=== PATIENT | male | born 1970 | race Caucasian/White ===

== ENCOUNTER → 2021-06-20 14:12 | Outpatient (BNVA) | payer OTHER, SELFPAY | PROVIDERS: PCP Internal Medicine; Visit Provider Nurse Practitioner Family | DX: M79.18 Myalgia, other site (principal); M47.22 Other spondylosis with radiculopathy, cervical region; M54.2 Cervicalgia; G89.28 Other chronic postprocedural pain; Z98.890 Other specified postprocedural states | CPT/HCPCS: 99202 ==

== ENCOUNTER → 2021-07-25 12:30 | Outpatient (BNVA) | payer OTHER, SELFPAY | PROVIDERS: PCP Internal Medicine; Visit Provider Nurse Practitioner Family | DX: M79.18 Myalgia, other site (principal); M47.22 Other spondylosis with radiculopathy, cervical region; M54.2 Cervicalgia; G89.28 Other chronic postprocedural pain; Z98.890 Other specified postprocedural states | CPT/HCPCS: 99212 ==

== ENCOUNTER 2021-07-31 17:21 | Outpatient (REF) | payer OTHER, SELFPAY ==
--- NOTE | ~2021-07-31 | MR_ITS ---
MR CERVICAL SPINE WITHOUT CONTRAST CLINICAL INFORMATION: Cervicalgia. COMPARISON: None available. TECHNIQUE: MRI of the cervical spine was obtained using routine sequences without contrast. FINDINGS: Postoperative changes following ACDF at the C5-C7 levels. Surgical hardware is not diagnostically assessed on MRI. There is no bone marrow edema. There are no acute fractures. The cervical arterial flow voids are maintained. There are no cord signal changes. No significant soft tissue findings. Partially imaged intracranial compartment is unremarkable. C2-C3: Disc contour is normal. No central canal stenosis and no foraminal stenosis. C3-C4: Small annular disc bulge. Uncovertebral joint spurring and facet arthropathy result in mild left-sided foraminal encroachment. C4-C5: Disc osteophyte mildly narrows the central canal. Uncovertebral joint hypertrophy and hypertrophic facet arthropathy result in moderate bilateral foraminal stenosis. C5-C6: ACDF changes. Advanced uncovertebral joint hypertrophy and hypertrophic facet arthropathy result in severe bilateral foraminal stenosis. Central canal not well assessed secondary to artifact from the surgical hardware. C6-C7: ACDF changes. Uncovertebral joint hypertrophy and hypertrophic facet arthropathy result in moderate to severe left-sided foraminal stenosis. Central canal not well assessed secondary to artifact from the surgical hardware. C7-T1: Disc contour is normal. No central canal stenosis and no foraminal stenosis. MR/MR cervical spine wo con IMPRESSION: - Postoperative changes following ACDF at the C5-C7 levels. - Spondylitic changes result in moderate bilateral C4-C5, severe bilateral C5-C6, and moderate to severe left C6-C7 foraminal stenosis. No severe central canal stenosis within the cervical spine.
== END 2021-07-31 17:22 | disposition home or self-care (01) ==
LOC: HO.MRI 17:21
PROVIDERS: PCP Internal Medicine; Visit Provider Nurse Practitioner Family
DX: M54.2 Cervicalgia (principal); G89.28 Other chronic postprocedural pain; M47.22 Other spondylosis with radiculopathy, cervical region; Z98.890 Other specified postprocedural states
CPT/HCPCS: 72141

== ENCOUNTER 2021-08-02 11:07 | Outpatient (REF) | payer OTHER, SELFPAY ==
[2021-08-02 14:22] LABS: Alanine Aminotransferase 33 U/L (0-40); Albumin Level 4.8 g/dL (3.5-5.0); Alkaline Phosphatase 62 U/L (39-117); Anion Gap 14 (12-20); Aspartate Amino Transferase 27 U/L (5-37); Bilirubin Total 0.5 mg/dL (0.0-1.0); Blood Urea Nitrogen 9 mg/dL (9-16); Calcium 9.6 mg/dL (8.4-10.2); Carbon Dioxide 24 mmol/L (22-29); Chloride 103 mmol/L (96-108); Estimated Glomerular Filt Rate > 60; Glucose Random 93 mg/dL (60-115); Potassium 4.1 mmol/L (3.3-5.1); Sodium 137 mmol/L (135-145); Total Protein 7.5 g/dL (6.5-8.0)
== END 2021-08-02 11:08 | disposition home or self-care (01) ==
LOC: HO.HMGCLDS 11:07
PROVIDERS: PCP Internal Medicine; Visit Provider Nurse Practitioner Family
DX: Z01.812 Encounter for preprocedural laboratory examination (principal)
CPT/HCPCS: 36415; 80053

== ENCOUNTER → 2021-08-22 12:28 | Outpatient (BNVA) | payer OTHER, SELFPAY | PROVIDERS: PCP Internal Medicine; Visit Provider Nurse Practitioner Family ==

== ENCOUNTER 2022-01-04 15:03 | Emergency (ER) | payer OTHER, SELFPAY ==
--- NOTE | ~2022-01-04 | CT_ITS ---
EXAMINATION: CT ABDOMEN AND PELVIS WITHOUT CONTRAST CLINICAL INFORMATION: Hematuria COMPARISON: None TECHNIQUE: Multidetector volumetric imaging was performed from the superior aspect of the liver through the pubic symphysis. Sagittal and coronal reformatted images were obtained on the technologist's workstation. This CT examination was performed using dose optimization techniques as appropriate, variously including the following: *Automated exposure control *Adjustment of mA and/or kV according to patient size (this includes techniques or standardized protocols for targeted exams where dose is matched to indication/reason for exam; i.e. extremities or head) *Use of iterative reconstruction technique DLP: 792 mGy-cm FINDINGS: LUNG BASES: There is bibasilar atelectasis/scarring. Heart size is normal. LIVER, GALLBLADDER, AND BILIARY TREE: The liver is normal in size, shape, and attenuation. No focal hepatic lesion or biliary ductal dilatation is present. The gallbladder is unremarkable with no evidence of radiopaque gallstones, gallbladder wall thickening, or obvious pericholecystic inflammatory changes. PANCREAS: Unremarkable. SPLEEN: Unremarkable. ADRENAL GLANDS: Unremarkable. KIDNEYS AND URETERS: The kidneys are normal in size, shape, and attenuation. No hydronephrosis, hydroureter, or calculi seen. No perinephric stranding. BLADDER: There is mild bladder wall thickening. GASTROINTESTINAL TRACT: There is scattered stool and gas seen throughout the colon without any significant distention. The appendix is normal caliber. The small bowel loops are normal caliber. The stomach is nondistended ABDOMINAL WALL: A small lacunar hernia containing intraperitoneal fat is noted. LYMPH NODES: Normal. VASCULAR: Unremarkable. PELVIC VISCERA: The prostate gland is mildly enlarged with central gland calcification. The periprostatic fat planes are preserved. No abnormal pelvic or inguinal lymph nodes seen. Prominent bilateral inguinal canal containing fat is noted. OSSEOUS STRUCTURES: Unremarkable. CT/CT abdomen pelvis wo con IMPRESSION: Mild distended bladder with bladder wall thickening but no radiopaque bilateral renal calculi seen. There is no adenopathy or hydronephrosis. Mild prostate enlargement. The base of the bladder wall is thickened as well. Consider urology consult. Prominent bilateral inguinal canal containing fat. Fleischner guidelines were followed.
[2022-01-04 16:08] VITALS: BP 151/86; PULSE 87; RESP 18; TEMP 36.7; O2SAT 98; BMI 32.7
[2022-01-04 16:30] LABS: MANUAL DIFF FLAG NO
[2022-01-04 16:33] LABS: Appearance Urine HAZY; Basophils Absolute Auto 0.1 X10*3/uL (0.0-0.2); Basophils Percent Auto 0.6 % (0-2); Color Urine YELLOW; Eosinophils Absolute Auto 0.2 X10*3/uL (0.0-0.4); Eosinophils Percent Auto 2.2 % (0-4); Glucose Urine UA NEG (NEG); Hematocrit 42.4 % (42.0-52.0); Hemoglobin 14.3 g/dl (14.0-18.0); Imm Gran Abs Auto 0.02 X10*3/uL (0.00-0.03); Imm Gran Pct Auto 0.2 % (0.0-0.4); Leukocyte Esterase Urine 2+ (NEG); Lymphocytes Absolute Auto 2.3 X10*3/uL (1.2-4.9); Lymphocytes Percent Auto 25.5 % (20-40); Mean Corpuscular HGB Conc 33.7 g/dl (31.0-36.0); Mean Corpuscular Hemoglobin 30.1 pg (27.0-33.0); Mean Corpuscular Volume 89.3 fL (80.0-98.0); Mean Platelet Volume 9.1 fL (9.4-12.4); Monocytes Absolute Auto 0.9 X10*3/uL (0.1-1.2); Monocytes Percent Auto 9.4 % (2-11); Neutrophils Absolute Auto 5.6 x10*3/uL (2.0-8.3); Neutrophils Percent Auto 62.1 % (45-73); Nitrite Urine NEG (NEG); PH 7.5 (5.0-8.0); Platelet Count 258 X10*3/uL (160-400); Red Blood Count 4.75 X10*6/uL (4.60-5.80); Red Cell Distribution Width 12.4 % (11.0-16.0); Specific Gravity - Urine <= 1.005 (1.005-1.025); UACC Culture Trigger YES; Urine Blood 3+ (NEG); Urine Ketones NEG (NEG); Urine Protein 1+ MG/DL (NEG-TRACE)
[2022-01-04 16:51] LABS: Bacteria Urine 2+ /LPF; RBC Urine 30-49 /HPF (0)
[2022-01-04 16:58] LABS: Alanine Aminotransferase 26 U/L (0-40); Albumin Level 4.6 g/dL (3.5-5.0); Alkaline Phosphatase 72 U/L (39-117); Anion Gap 14 (12-20); Aspartate Amino Transferase 21 U/L (5-37); Bilirubin Total 0.5 mg/dL (0.0-1.0); Blood Urea Nitrogen 10 mg/dL (9-16); Calcium 9.9 mg/dL (8.4-10.2); Carbon Dioxide 26 mmol/L (22-29); Chloride 102 mmol/L (96-108); Creatinine Clr Calc Pharmacy 151.6; Estimated Glomerular Filt Rate > 60; Glucose Random 73 mg/dL (60-115); Sodium 138 mmol/L (135-145); Total Protein 7.4 g/dL (6.5-8.0)
== END 2022-01-04 22:21 | disposition left against medical advice (07) ==
PROVIDERS: Emergency Provider Emergency Medicine; PCP Internal Medicine
DX: R31.9 Hematuria, unspecified (principal)
CPT/HCPCS: 36415; 74176; 80053; 81001; 85025; 87086; 87088; 87186; 99284

== ENCOUNTER 2022-01-30 06:28 | Outpatient (REF) | payer OTHER, SELFPAY | END 2022-01-30 06:29 | disposition home or self-care (01) | LOC: HO.RADIR 06:28 | PROVIDERS: Visit Provider Anesthesiology | DX: Z13.89 Encounter for screening for other disorder (principal) | CPT/HCPCS: J3300 ==

== ENCOUNTER 2022-02-02 13:19 | Day surgery (SDC) | payer OTHER, SELFPAY ==
--- NOTE | 2022-02-01 10:43 | HO.ANESPROP2 ---
Documented by User: Jane David NP 02/01/22 10:46 [facility] Active Problems Active Problems: All Active Problems (Updated 11/08/21 @ 12:48 by Mady Blum NP) Multiple drug allergies (Acute) Cervical spinal stenosis (Acute) Pre-procedural laboratory examination (Acute) Chronic neck pain with history of cervical spinal surgery (Acute) Spondylosis of cervical spine with radiculopathy (Acute) Cervicalgia (Acute) Myofascial pain (Acute) Past Medical History Medical History (Updated 02/01/22 @ 10:45 by Jane David NP) Central apnea Diabetes DVT (deep venous thrombosis) Fatty liver HLD (hyperlipidemia) HTN (hypertension) PHILIP (obstructive sleep apnea) Pulmonary emboli Social History Social History Patient Tobacco Use Status: Current everyday Tobacco user Tobacco use type: Cigarette Cigarettes Per Day: 5 Use of substances other than those prescribed or required for medical reasons: No Are you DNR?: No Advance Directives: No Advance Directives Information Provided: Yes Advance Directives on File: No Meds Allergies Allergy/AdvReac Type Severity Reaction Status Date / Time enoxaparin [From Lovenox] Allergy Severe hives Verified 01/30/22 10:12 gabapentin Allergy Severe body Verified 01/30/22 10:12 swelling Iodinated Contrast Media Allergy Severe hives Verified 01/30/22 10:12 morphine Allergy Severe severe Verified 01/30/22 10:12 dyspnea codeine Allergy Unknown CHEST PAIN Verified 01/30/22 10:12 adhesive AdvReac Severe rash Verified 01/30/22 10:12 oxycodone [Percocet] AdvReac Severe inflames Verified 01/30/22 10:12 prostate Home Medications Medication Instructions Recorded Confirmed Last Taken Type atorvastatin 80 mg tablet 80 mg PO DAILY 06/20/21 07/25/21 Unknown History dulaglutide 1.5 mg/0.5 mL 1.5 mg subcut QWEEK 06/20/21 07/25/21 Unknown History subcutaneous pen injector (Trulicity) loratadine 10 mg tablet 10 mg PO DAILY 06/20/21 07/25/21 02/02/22 History metformin 500 mg tablet,extended 500 mg PO TID 06/20/21 07/25/21 02/02/22 History release 24 hr olmesartan 20 mg tablet 10 mg PO DAILY 1107/25/21 02/02/22 History warfarin 5 mg tablet 10 mg PO DAILY 06/20/21 07/25/21 01/25/22 History varenicline 1 mg tablet 1 tab PO BID 02/02/22 02/02/22 02/02/22 History Exam Exam Date and Time: February 01, 2022 1043 Pertinent Lab Results Pertinent Lab Results: Laboratory Tests 01/04/22 01/04/22 16:21 16:21 WBC 9.0 Hgb 14.3 Hct 42.4 Plt Count 258 Sodium 138 Potassium 4.0 Chloride 102 Carbon Dioxide 26 BUN 10 Creatinine 0.77 Assessment and Plan Assessment Anesthesia Assessment: Chart Reviewed Documented by User: Tereso Ayon MD 02/02/22 14:00 [facility] Past Medical History Medical History (Updated 02/01/22 @ 10:45 by Jane David NP) Central apnea Diabetes DVT (deep venous thrombosis) Fatty liver HLD (hyperlipidemia) HTN (hypertension) PHILIP (obstructive sleep apnea) Pulmonary emboli Family History Family history of problems with anesthesia: No Surgical History History of Problems with Anesthesia: No Social History Social History Patient Tobacco Use Status: Current everyday Tobacco user Tobacco use type: Cigarette Cigarettes Per Day: 5 Use of substances other than those prescribed or required for medical reasons: No Are you DNR?: No Advance Directives: No Advance Directives Information Provided: Yes Advance Directives on File: No Meds Allergies Allergy/AdvReac Type Severity Reaction Status Date / Time enoxaparin [From Lovenox] Allergy Severe hives Verified 01/30/22 10:12 gabapentin Allergy Severe body Verified 01/30/22 10:12 swelling Iodinated Contrast Media Allergy Severe hives Verified 01/30/22 10:12 morphine Allergy Severe severe Verified 01/30/22 10:12 dyspnea codeine Allergy Unknown CHEST PAIN Verified 01/30/22 10:12 adhesive AdvReac Severe rash Verified 01/30/22 10:12 oxycodone [Percocet] AdvReac Severe inflames Verified 01/30/22 10:12 prostate Home Medications Medication Instructions Recorded Confirmed Last Taken Type atorvastatin 80 mg tablet 80 mg PO DAILY 06/20/21 07/25/21 Unknown History dulaglutide 1.5 mg/0.5 mL 1.5 mg subcut QWEEK 06/20/21 07/25/21 Unknown History subcutaneous pen injector (Trulicity) loratadine 10 mg tablet 10 mg PO DAILY 06/20/21 07/25/21 02/02/22 History metformin 500 mg tablet,extended 500 mg PO TID 06/20/21 07/25/21 02/02/22 History release 24 hr olmesartan 20 mg tablet 10 mg PO DAILY 06/20/21 07/25/21 02/02/22 History warfarin 5 mg tablet 10 mg PO DAILY 06/20/21 07/25/21 01/25/22 History varenicline 1 mg tablet 1 tab PO BID 02/02/22 02/02/22 02/02/22 History Exam Airway Mallampati Class: III TM Dist: >3cm Neck ROM: Full Assessment and Plan Assessment Anesthesia Assessment: Anesthesia Plan Discussed and Smoking Cess. Discussed Final Anesthetic Review Family History of Problems with Anesthesia: No History of Problems with Anesthesia: No NPO: Yes ASA Class: III Final Preanesthetic Review: No Changes in Pt Med Stat, Meds/Allgs Chart Reviewed, Consent Obtained/Reviewed and Anes Risks/Benef Reviewed Patient Risk: Intermediate Procedure Risk: Low Anesthetic Plan Anesthetic Plan: MAC: Disposition: Standard PACU
[2022-02-02] VITALS (8 sets, daily range): BP systolic 98–145; BP diastolic 51–93; PULSE 69–82; RESP 16; TEMP 36.1–36.7; O2SAT 93–98; BMI 32.2
--- NOTE | ~2022-02-02 | FL_ITS ---
EXAMINATION: XR FLUOROSCOPY WITH IMAGES CLINICAL INFORMATION: Interlaminar epidural COMPARISON: MR cervical spine 07/31/2021 TECHNIQUE: Fluoroscopy performed by Dr. Crescencio Navarrete. Fluoroscopy time: 0.2 minutes DAP: 0.615 mGycm2 Images: 1 FINDINGS: There are postsurgical changes with hardware at C5-C6 and C6-C7. A spinal needle is present with tip at interlaminar level C6-C7. FL/FL guidance in OR IMPRESSION: Fluoroscopy for pain management procedure.
[2022-02-02 13:56] LABS: Glucose, Whole Blood 89 mg/dL (60-115)
[2022-02-02] MEDS: Lactated Ringers 1,000 ML 100 ML IVCONT (13:58)
[2022-02-02 14:07] LABS: Prothrombin Time 11.3 SEC (9.9-13.0)
[2022-02-02] MEDS: Hydrocortisone Sod Succ/PF 100 MG VIAL 200 MG IVPUSH (14:10)
[2022-02-02] MEDS: diphenhydrAMINE HCL 50 MG/ML VIAL IVPUSH (14:49)
--- NOTE | 2022-02-02 14:56 | MHC.SHP ---
Pre-Procedural Eval Section A Date of Service: 02/02/22 The patient is an INPATIENT: No Changes since office visit: Yes Patient answered all questions The History & Physical has been completed within 30 days and I have reviewed it.: No Section B Chief Complaint: spondylosis with radiculopathy, cervical region Details of Present Illness: as above Relevant Family History (Specify if Yes): No Relevant Social History: None Present Medications: see Short Stay Collaborative assessment Medical History: No relevant PMH History of Previous Operations: No relevant previous surgery Allergies: Allergies Allergy/AdvReac Type Severity Reaction Status Date / Time enoxaparin [From Lovenox] Allergy Severe hives Verified 01/30/22 10:12 gabapentin Allergy Severe body Verified 01/30/22 10:12 swelling Iodinated Contrast Media Allergy Severe hives Verified 01/30/22 10:12 morphine Allergy Severe severe Verified 01/30/22 10:12 dyspnea codeine Allergy Unknown CHEST PAIN Verified 01/30/22 10:12 adhesive AdvReac Severe rash Verified 01/30/22 10:12 oxycodone [Percocet] AdvReac Severe inflames Verified 01/30/22 10:12 prostate Review of Systems Sugical H&P ROS: Negative: Constitution, Cardiovascular, Respiratory, Neurological, Psychiatric, Hem-Onc, Allergic/Immunologic, Gastrointestinal, Genitourinary, Musculoskeletal, Integumentary, Endocrine and Eyes/Ears/Nose/Throat Exam Surgical H&P Exam: Normal: HEENT, Normal: Heart, Normal: Lungs, Normal: Extremities, Normal: Abdomen, Normal: Skin and Normal: Neurological Plan Diagnosis/Plan: Unchanged I have reviewed the history and physical and performed a pertinent physical examination on my patient. No changes have occurred unless specified.
--- NOTE | 2022-02-02 15:39 | P.BOP_ITS ---
Brief Operative Note Date of Service: 02/02/22 Pre-op diagnosis: spondylosis cervical spine, postlaminectomy syndrome cervical spine Post-op diagnosis: same Procedure: C6-C7 interlaminar cervical epidural steroid injection Surgeon: Crescencio Navarrete MD Anesthesia: MAC Was an Patent Leather Sorter used for this Procedure?: No Estimated blood loss (mL): 0 Pathology: none sent Condition: stable Disposition: PACU
--- NOTE | 2022-02-02 15:40 | P.OP_ITS ---
Operative Note Operative Note Date of Service: 02/02/22 Narrative: Martin is very pleasant 51 years old male? who came today into the operating room for interlaminar C6-C7 epidural steroid injection. Patient is allergic to IV contrast he received Benadryl 50 mg before the procedure. Anesthesiologist was on standby with diluted epinephrine. After obtaining informed consent the patient was brought to the operating room, He was positioned prone on operating table, [employer] monitors were applied and patient was minimally sedated.? ?Time-out was performed delineating correct site, side, the nature of the procedure, patient's allergy, preoperative antibiotic if needed.? All operating room staff was participating in OR time-out procedure. Patient's neck and upper back was prepped with ChloraPrep draped with sterile utility towels.full body fenestrated drape.? C-arm was brought over operating field and square picture C6-C7 and T1 vertebra is were demonstrated on the screen. Inter spacers between cervical vertebral bodies of C5-C6 and C6-C7 were noted. Right lamina of C7 vertebra on the right very close to the spinous process of C7 projection to the skin was chosen to the start of the injection. After recent skin wheal with lidocaine 1% 22 gauge Touhy needle was inserted through the skin wheal and advanced to were the upper margin of the C7 lamina on intermittent anterior posterior and contralateral oblique views. Loss of resis tance to saline technique was used to locate the epidural space. When loss of resistant is felt very small amount of the contrast less than 0.5 cc was injected into the needle considering patient's allergy to IV contrast. Epidural spread of the contrast was demonstrated on the screen. Contralateral oblique image was saved. After that treatment solution of normal saline mixed with 6 mg of Decadron and very small amount of lidocaine 1% approximately 16 drops was administered into the epidural space. The patient tolerated procedure well. He was taking outside of the operating room to PACU where he recovered uneventfully. He went home without immediate complications.
--- NOTE | 2022-02-02 17:40 | PC.NURSE ---
patient ambulated to bathroom steady gait. no nausea. voidedx1
== END 2022-02-02 17:41 | disposition home or self-care (01) ==
PROVIDERS: Nurse Practitioner; PCP Internal Medicine; Visit Provider Anesthesiology
PROC: 3E0R33Z Introduction of Anti-inflammatory into Spinal Canal, Percutaneous Approach (ICD-10-PCS; CPT 62321; principal; 2022-02-02 14:30)
DX: M48.02 Spinal stenosis, cervical region (principal); M54.2 Cervicalgia; G89.29 Other chronic pain; M47.22 Other spondylosis with radiculopathy, cervical region; Z98.890 Other specified postprocedural states; Z86.718 Personal history of other venous thrombosis and embolism; I10 Essential (primary) hypertension; E11.9 Type 2 diabetes mellitus without complications; J30.9 Allergic rhinitis, unspecified; E78.5 Hyperlipidemia, unspecified; Z79.01 Long term (current) use of anticoagulants; Z79.84 Long term (current) use of oral hypoglycemic drugs; Z79.899 Other long term (current) drug therapy; Z88.8 Allergy status to other drugs, medicaments and biological substances; F17.210 Nicotine dependence, cigarettes, uncomplicated
CPT/HCPCS: 62321; 36415; 82947; 85610; J0171; J1100; J1200; J2250; J2795; J3010; Q9966

== ENCOUNTER → 2022-03-06 09:46 | Outpatient (BNVA) | payer OTHER, SELFPAY | PROVIDERS: PCP Internal Medicine; Visit Provider Nurse Practitioner Family | DX: M48.02 Spinal stenosis, cervical region (principal); G89.28 Other chronic postprocedural pain; M54.2 Cervicalgia; M47.22 Other spondylosis with radiculopathy, cervical region; M62.838 Other muscle spasm; M53.3 Sacrococcygeal disorders, not elsewhere classified | CPT/HCPCS: 99212 ==

== ENCOUNTER 2022-05-01 05:59 | Outpatient (REF) | payer OTHER, SELFPAY ==
--- NOTE | ~2022-05-01 | FL_ITS ---
EXAMINATION: XR FLUOROSCOPY WITH IMAGES CLINICAL INFORMATION: M53.3 - Sacrococcygeal disorders, not elsewhere classified COMPARISON: AP pelvis 01/04/2022 TECHNIQUE: Fluoroscopy performed by Dr. Crescencio Navarrete. Fluoroscopy time: under 1 minute. Cumulative Dose: 3.96 mGy. DAP: 1.08 Gy-cm2. Images: 1. FINDINGS: Spinal needle overlies mid to lower right SI joint. There is trace contrast in the periarticular soft tissues with probable early intra-articular contrast. No vasculature communication appreciated. FL/FL guidance in treatment room IMPRESSION: Fluoroscopy for pain management procedure.
== END 2022-05-01 06:00 | disposition home or self-care (01) ==
LOC: HO.RADIR 05:59
PROVIDERS: Visit Provider Anesthesiology
DX: M53.3 Sacrococcygeal disorders, not elsewhere classified (principal); M48.02 Spinal stenosis, cervical region; M54.2 Cervicalgia; G89.28 Other chronic postprocedural pain; M47.22 Other spondylosis with radiculopathy, cervical region; M62.838 Other muscle spasm; Z98.890 Other specified postprocedural states
CPT/HCPCS: 27096; A9585; J2795; J3300; J3301

== ENCOUNTER 2022-06-01 12:48 | Day surgery (SDC) | payer OTHER, SELFPAY ==
--- NOTE | ~2022-06-01 | FL_ITS ---
EXAMINATION: XR FLUOROSCOPY WITH IMAGES CLINICAL INFORMATION: M48.02 - Spinal stenosis, cervical region COMPARISON: MR cervical spine 07/31/2021, fluoroscopic spot view 02/02/2022. TECHNIQUE: Fluoroscopy performed by Dr. Crescencio Navarrete. Fluoroscopy time: 0.4 minutes. Cumulative Dose: 5.81 mGy. DAP: 0.983 Gy-cm2. Images: 2. FINDINGS: There are postsurgical changes again seen lower cervical spine consistent with ACDF C5-C6 and C6-C7. Disc space hardware is intact. There is a spinal needle at posterior interlaminal lower cervical spine just right at approximately C6-C7. FL/FL guidance in treatment room IMPRESSION: Fluoroscopy for pain management procedure.
[2022-06-01 13:26] VITALS: BMI 32.2
[2022-06-01] MEDS: Lactated Ringers 1,000 ML 100 ML IVCONT (13:39)
[2022-06-01 13:40] VITALS: BP 143/87; PULSE 76; RESP 16; TEMP 36.4; O2SAT 97
[2022-06-01 13:54] LABS: INTERNATIONAL NORM RATIO 0.9 (0.9-1.1); Prothrombin Time 10.7 SEC (10.0-13.1)
--- NOTE | 2022-06-01 13:57 | P.OP_ITS ---
Operative Note Operative Note Date of Service: 02/02/22 Narrative: Martin is very pleasant 51 years old male? who came today into the operating room for interlaminar C6-C7 epidural steroid injection. Patient is allergic to IV contrast he received Benadryl 50 mg before the procedure. Anesthesiologist was on standby with diluted epinephrine. After obtaining informed consent the patient was brought to the operating room, He was positioned prone on operating table, [place] [employer] monitors were applied and patient was minimally sedated.? ?Time-out was performed delineating correct site, side, the nature of the procedure, patient's allergy, preoperative antibiotic if needed.? All operating room staff was participating in OR time-out procedure. Patient's neck and upper back was prepped with ChloraPrep draped with sterile utility towels.full body fenestrated drape.? C-arm was brought over operating field and square picture C6-C7 and T1 vertebra is were demonstrated on the screen. It required to tilt C-arm 15 gegree cephalad to obtain a proper view of the interlaminal opening and avoid anterior spine hardware imaging. Inter spacers between cervical vertebral bodies of C5-C6 and C6-C7 were noted. Right lamina of C7 vertebra on the right very close to the spinous process of C7 projection to the skin was chosen to the start of the injection. After rising skin wheal with lidocaine 1% 22 gauge Touhy needle was inserted through the skin wheal and advanced to the upper margin of the C7 lamina on intermittent anterior posterior and contralateral oblique views. Loss of resistance to saline technique was used to locate the epidural space. Contralateral oblique view at 50 degrees of the tilt to the left was used to demonstrate the advancement of the needle toward the interlaminar line. When loss of resistant is felt very small amount of the contrast less than 0.5 cc was injected into the needle considering patient's allergy to IV contrast. Epidural spread of the contrast was demonstrated on the screen. Contralateral oblique image was saved. After that treatment solution of normal saline mixed with 12 mg of Decadron and very small (trace ) amount of lidocaine 2% approximately 26 drops was administered into the epidural space. The patient tolerated procedure well. He was taken outside of the operating room to PACU where he recovered uneventfully. He went home without immediate complications.
--- NOTE | 2022-06-01 13:59 | HO.ANESPROP2 ---
REPLACED BY [facility] Active Problems Active Problems: All Active Problems (Updated 03/07/22 @ 17:43 by Mady Blum NP) Sacroiliac joint pain (Acute) Muscle spasms of neck (Acute) Multiple drug allergies (Acute) Cervical spinal stenosis (Acute) Pre-procedural laboratory examination (Acute) Chronic neck pain with history of cervical spinal surgery (Acute) Spondylosis of cervical spine with radiculopathy (Acute) Cervicalgia (Acute) Myofascial pain (Acute) Past Medical History Medical History (Updated 03/07/22 @ 17:43 by Mady Blum NP) Central apnea Diabetes DVT (deep venous thrombosis) Fatty liver HLD (hyperlipidemia) HTN (hypertension) PHILIP (obstructive sleep apnea) Pulmonary emboli Family History Family history of problems with anesthesia: No Surgical History History of Problems with Anesthesia: No Social History Social History Patient Tobacco Use Status: Current everyday Tobacco user Tobacco use type: Cigarette Cigarettes Per Day: 5 Use of substances other than those prescribed or required for medical reasons: No Are you DNR?: No Advance Directives: No Advance Directives Information Provided: Yes Meds Allergies Allergy/AdvReac Type Severity Reaction Status Date / Time enoxaparin [From Lovenox] Allergy Severe hives Verified 05/01/22 12:56 gabapentin Allergy Severe body Verified 05/01/22 12:56 swelling Iodinated Contrast Media Allergy Severe hives Verified 05/01/22 12:56 morphine Allergy Severe severe Verified 05/01/22 12:56 dyspnea codeine Allergy Unknown CHEST PAIN Verified 05/01/22 12:56 oxycodone [Percocet] AdvReac Severe inflames Verified 05/01/22 12:56 prostate Active Medications: Current Medications Albuterol Sulfate (Albuterol Sulfate (0.083%) 2.5 Mg/3 Ml Vial.Neb) 2.5 mg INHALE ONCE PRN PRN Reason: Shortness of Breath/Wheezing Lactated Ringer's (Lr) 1,000 mls @ 100 mls/hr IVCONT .Q10H ANIBAL Last Admin: 06/01/22 13:39 Dose: 100 mls/hr Home Medications Medication Instructions Recorded Confirmed Last Taken Type atorvastatin 80 mg tablet 80 mg PO BEDTIME 06/20/21 06/01/22 Unknown History loratadine 10 mg tablet 10 mg PO DAILY 06/20/21 06/01/2222 History metformin 500 mg tablet,extended 500 mg PO TID 06/20/21 06/01/22 06/01/22 History release 24 hr olmesartan 20 mg tablet 10 mg PO DAILY 06/20/21 06/01/22 02/02/22 History warfarin 5 mg tablet 10 mg PO DAILY 06/20/21 06/01/22 01/25/22 History varenicline 1 mg tablet 1 tab PO BID 02/02/22 06/01/22 02/02/22 History ergocalciferol (vitamin D2) 1,250 1 cap PO QWEEK 06/01/22 06/01/22 Unknown History mcg (50,000 unit) capsule sertraline 100 mg tablet 2 tab PO DAILY 06/01/22 06/01/22 Unknown History triamcinolone acetonide 55 mcg 1 spray intranasal DAILY 06/01/22 06/01/22 Unknown History nasal spray aerosol Exam Exam Date and Time: June 01, 2022 1359 Height,Weight and Vital Signs: Height 6 ft 2 in Weight 113.852 kg Last Vital Signs Temp 97.5 F 06/01/22 13:40 Pulse 76 06/01/22 13:40 Resp 16 06/01/22 13:40 BP 143/87 H 06/01/22 13:40 Pulse Ox 97 06/01/22 13:40 O2 Del Method 06/01/22 13:40 Pertinent Lab Results Pertinent Lab Results: Laboratory Tests 06/01/22 13:31 PT 10.7 INR 0.9 Airway Mallampati Class: II TM Dist: >3cm Neck ROM: Full Heart: rrr Lungs: cta Assessment and Plan Assessment Anesthesia Assessment: Anesthesia Plan Discussed and Chart Reviewed Final Anesthetic Review Family History of Problems with Anesthesia: No History of Problems with Anesthesia: No NPO: Yes ASA Class: III Final Preanesthetic Review: No Changes in Pt Med Stat, Meds/Allgs Chart Reviewed and Consent Obtained/Reviewed Patient Risk: Intermediate Procedure Risk: Intermediate Anesthetic Plan Anesthetic Plan: MAC: Disposition: Standard PACU
--- NOTE | 2022-06-01 14:44 | MHC.SHP ---
Pre-Procedural Eval Section A Date of Service: 06/01/22 The patient is an INPATIENT: No Changes since office visit: Yes Patient answered all questions The History & Physical has been completed within 30 days and I have reviewed it.: No Section B Chief Complaint: Other spondylosis with radiculopathy, cervical reg Details of Present Illness: as above Relevant Family History (Specify if Yes): No Relevant Social History: None Present Medications: None Medical History: No relevant PMH History of Previous Operations: No relevant previous surgery Allergies: Allergies Allergy/AdvReac Type Severity Reaction Status Date / Time enoxaparin [From Lovenox] Allergy Severe hives Verified 05/01/22 12:56 gabapentin Allergy Severe body Verified 05/01/22 12:56 swelling Iodinated Contrast Media Allergy Severe hives Verified 05/01/22 12:56 morphine Allergy Severe severe Verified 05/01/22 12:56 dyspnea codeine Allergy Unknown CHEST PAIN Verified 05/01/22 12:56 oxycodone [Percocet] AdvReac Severe inflames Verified 05/01/22 12:56 prostate Review of Systems Sugical H&P ROS: Negative: Constitution, Cardiovascular, Respiratory, Neurological, Psychiatric, Hem-Onc, Allergic/Immunologic, Gastrointestinal, Genitourinary, Musculoskeletal, Integumentary, Endocrine and Eyes/Ears/Nose/Throat Exam Surgical H&P Exam: Normal: HEENT, Normal: Heart, Normal: Lungs, Normal: Extremities, Normal: Abdomen, Normal: Skin and Normal: Neurological Plan Diagnosis/Plan: Unchanged I have reviewed the history and physical and performed a pertinent physical examination on my patient. No changes have occurred unless specified.
[2022-06-01 15:26] VITALS: BP 149/94; PULSE 71; RESP 14; TEMP 36.7; O2SAT 97
--- NOTE | 2022-06-01 15:32 | PM.OP ---
Brief Operative Note Date of Service: 06/01/22 Pre-op diagnosis: postlaminectomy syndrome Post-op diagnosis: same Procedure: inerlaminar Epidural steroid injection. Surgeon: Crescencio Navarrete MD Was an Dynamometer Tester Engine used for this Procedure?: No Estimated blood loss (mL): 0 Condition: stable Disposition: PACU
[2022-06-01 15:41] VITALS: BP 136/78; PULSE 65; RESP 16; TEMP 36.4; O2SAT 97
[2022-06-04 04:59] LABS: Glucose, Whole Blood 101 mg/dL (60-115)
== END 2022-06-01 16:15 | disposition home or self-care (01) ==
PROVIDERS: Anesthesiology; PCP Internal Medicine; Visit Provider Anesthesiology
PROC: (CPT 62321; principal; 2022-06-01 14:40)
DX: M48.02 Spinal stenosis, cervical region (principal); M54.2 Cervicalgia; G89.29 Other chronic pain; M47.22 Other spondylosis with radiculopathy, cervical region; M53.3 Sacrococcygeal disorders, not elsewhere classified; M62.838 Other muscle spasm; Z98.890 Other specified postprocedural states; G47.33 Obstructive sleep apnea (adult) (pediatric); I10 Essential (primary) hypertension; E78.5 Hyperlipidemia, unspecified; E11.9 Type 2 diabetes mellitus without complications; Z86.718 Personal history of other venous thrombosis and embolism; Z86.711 Personal history of pulmonary embolism; Z79.01 Long term (current) use of anticoagulants; Z79.84 Long term (current) use of oral hypoglycemic drugs; Z79.899 Other long term (current) drug therapy; Z88.8 Allergy status to other drugs, medicaments and biological substances; Z91.041 Radiographic dye allergy status; F17.210 Nicotine dependence, cigarettes, uncomplicated
CPT/HCPCS: 62321; 36415; 82947; 85610; J1100; J1200; J2250; J2795; J3010; J3300

== ENCOUNTER → 2022-06-04 09:34 | Outpatient (BNVA) | payer OTHER, SELFPAY | PROVIDERS: PCP Internal Medicine; Visit Provider Nurse Practitioner Family | DX: M48.02 Spinal stenosis, cervical region (principal); M54.2 Cervicalgia; M47.22 Other spondylosis with radiculopathy, cervical region; M53.3 Sacrococcygeal disorders, not elsewhere classified; M79.18 Myalgia, other site; M25.551 Pain in right hip; G89.28 Other chronic postprocedural pain; Z98.890 Other specified postprocedural states | CPT/HCPCS: 99212 ==

== ENCOUNTER → 2022-07-09 09:02 | Outpatient (BNVA) | payer OTHER, SELFPAY | PROVIDERS: PCP Internal Medicine; Visit Provider Anesthesiology | DX: M48.02 Spinal stenosis, cervical region (principal); M54.12 Radiculopathy, cervical region; M47.22 Other spondylosis with radiculopathy, cervical region; M53.3 Sacrococcygeal disorders, not elsewhere classified; M79.18 Myalgia, other site; M25.551 Pain in right hip; G89.28 Other chronic postprocedural pain; Z98.890 Other specified postprocedural states; M54.2 Cervicalgia | CPT/HCPCS: 99212 ==

== ENCOUNTER 2022-07-19 18:24 | Outpatient (REF) | payer OTHER, SELFPAY ==
--- NOTE | ~2022-07-19 | MR_ITS ---
EXAMINATION: MR CERVICAL SPINE WITHOUT CONTRAST CLINICAL INFORMATION: Post laminectomy syndrome. COMPARISON: Cervical spine MRI 07/31/2021. TECHNIQUE: MRI of the cervical spine was obtained using routine sequences without contrast. FINDINGS: There are chronic postoperative changes of an anterior cervical discectomy and fusion at C5-C6 and C6-C7. Alignment is normal. Vertebral heights are preserved. There are type I degenerative endplate changes at C4-C5. There is loss of intervertebral disc height and T2 signal intensity at C4-C5 related to disc degeneration. Disc desiccation visualized at multiple additional levels. There is no cord compression or abnormal intramedullary signal changes. The cervicomedullary junction is normal. Limited visualization of the posterior fossa reveals no abnormal finding. The occipital condyles and lateral C1 masses are intact. 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 C1-C2 articular facets are unremarkable. At C2-C3 the annular contour is normal. No canal or neuroforaminal compromise. At C3-C4 the annular contour is normal. No canal or neuroforaminal compromise. At C4-C5 there is a bulging disc. Mild canal stenosis. Uncovertebral joint spurring and facet degenerative change causes moderate bilateral neuroforaminal encroachment. At C5-C6 there is no canal stenosis. Mild residual neuroforaminal encroachment. At C6-C7 there is no canal stenosis. Mild residual left neuroforaminal encroachment. At C7-T1 the annular contour is normal. Bilateral facet degenerative change. No canal stenosis. No neuroforaminal encroachment. Visualized soft tissues of the neck are normal. Vascular flow voids are maintained. MR/MR cervical spine wo con IMPRESSION: There are chronic postoperative changes of an anterior cervical discectomy and fusion at C5-C6 and C6-C7. There is junctional spondylosis above the fusion at the level of C4-C5 where there is mild canal stenosis and moderate bilateral neuroforaminal encroachment. Otherwise no canal compromise. No cord compression or abnormal intramedullary signal changes.
== END 2022-07-19 18:25 | disposition home or self-care (01) ==
LOC: HO.MRI 18:24
PROVIDERS: Visit Provider Anesthesiology
DX: M47.22 Other spondylosis with radiculopathy, cervical region (principal); M96.1 Postlaminectomy syndrome, not elsewhere classified
CPT/HCPCS: 72141

== ENCOUNTER → 2022-08-02 14:05 | Outpatient (BNVA) | payer OTHER, SELFPAY | PROVIDERS: PCP Internal Medicine; Visit Provider Nurse Practitioner Family | DX: Z13.89 Encounter for screening for other disorder (principal) ==

== ENCOUNTER 2022-11-23 14:14 | Outpatient (REF) | payer OTHER, SELFPAY ==
[2022-11-23 15:05] LABS: Influenza A PCR NEGATIVE (Negative); Influenza B PCR NEGATIVE (Negative); Resp Syncy Virus RNA Qual PCR NEGATIVE (Negative); SARS COV2 PCR INHOUSE NEGATIVE (Negative)
== END 2022-11-23 14:15 | disposition home or self-care (01) ==
LOC: HO.LNP 14:14
PROVIDERS: Visit Provider Internal Medicine
DX: R43.9 Unspecified disturbances of smell and taste (principal); Z20.822 Contact with and (suspected) exposure to COVID-19
CPT/HCPCS: 0241U